=== PATIENT | female | born 1985 | race Caucasian/White ===

== ENCOUNTER 2016-09-02 05:14 | Inpatient (IN) | payer MEDICAID ==
[~2016-09-02] VITALS: Ht 165.1 cm; Wt 82.5 kg
[2016-09-02] MEDS ORDERED: CARBOPROST 250 MCG INJ IM PRN (05:30)
[2016-09-02] MEDS ORDERED: MISOPROSTOL 200 MCG TAB PR PRN ×2 (05:30→08:30)
[2016-09-02] MEDS ORDERED: METHYLERGONOVINE 0.2 MG INJ IM PRN (05:30)
[2016-09-02] MEDS ORDERED: OXYTOCIN 30 UNITS/LR 500 ML IV PRN (05:30)
[2016-09-02] MEDS: LACTATED RINGER'S 1,000 ML IV SCH ×5 (05:49→22:05)
[2016-09-02 05:51] VITALS: BP 129/84; PULSE 93; RESP 18
[2016-09-02 05:58] VITALS: Ht 165.1 cm; Wt 82.5 kg
[2016-09-02] MEDS ORDERED: OXYTOCIN 30 UNITS/LR 500 ML IV SCH (06:00)
[2016-09-02 06:31] LABS: ADD SCAN DIFF NO
[2016-09-02 06:50] LABS: BASOPHILS % 0.1 % (0.0-2.0); EOSINOPHILS # 0.1 10^3/ul (0.0-0.5); HEMOGLOBIN 10.7 g/dl (12.0-16.0); LYMPHOCYTES # 1.3 10^3/ul (0.8-2.9); LYMPHOCYTES % 18.4 % (15.0-51.0); MEAN CORPUSCULAR HEMOGLOBIN 25.2 pg (29.0-33.0); MEAN CORPUSCULAR HGB CONC 31.5 g/dl (32.0-37.0); MEAN CORPUSCULAR VOLUME 80.2 fl (82.0-101.0); MEAN PLATELET VOLUME 10.5 fl (7.4-10.4); MONOCYTE # 0.6 10^3/ul (0.3-0.9); MONOCYTES % 8.1 % (0.0-11.0); NEUTROPHIL # 4.9 10^3/ul (1.6-7.5); NEUTROPHILS % 71.8 % (39.0-77.0); PLATELET COUNT 229 10^3/UL (140-415); RED BLOOD COUNT 4.24 10^6/ul (4.20-5.40); RED CELL DISTRIBUTION WIDTH 15.5 % (11.5-14.5); WHITE BLOOD COUNT 6.8 10^3/ul (4.8-10.8)
[2016-09-02 07:05] LABS: INR 0.98
[2016-09-02] MEDS ORDERED: LACTATED RINGER'S 1,000 ML IV ONE (07:05)
[2016-09-02 07:06] LABS: PARTIAL THROMBOPLASTIN TIME 29.7 Sec (25.0-35.0)
[2016-09-02] MEDS ORDERED: CITRIC ACID/NA CITRATE 30 ML CUP PO SCH (07:28)
[2016-09-02] MEDS ORDERED: ONDANSETRON 4 MG INJ IV ONE (07:30)
[2016-09-02] MEDS ORDERED: CITRIC ACID/SODIUM CITRATE 15 ML CUP PO ONE (07:30)
[2016-09-02] MEDS ORDERED: morphine SULFATE/PF (10 MG/10 ML) INJ ONE (08:05)
[2016-09-02] MEDS ORDERED: FENTAnyl 50 MCG/ML VIAL ONE (08:05)
--- NOTE | 2016-09-02 08:10 | HP ---
Date/Time of Note Date/Time of Note DATE: 09/02/16 TIME: 08:07 OB - History Hx of Present Free Text/Dictation HISTORY OF PRESENT ILLNESS: 31 YO with history of previous delivery x 3, who desires to have repeat delivery and Permanent sterilization. I discussed with the patient the risks, benefits, indications, and alternatives of procedure including but not limited to risks of infection, bleeding, damage to other organs, bowel, bladder, hernia formation, scar formation, possibility of blood transfusion, possible need for emergency hysterectomy, as well as the fact that tubal ligation may fail and there is 1 to 2% risk of failure over lifetime of tubal ligations and the fact that tubal ligation is permanent and irreversible. She was allowed to ask questions. All her questions were answered. Informed consent has been obtained. Care: Good Care Ultrasounds: Normal mid trimester US Obstetrical Complications: Other (Anemia) Medical Complications: Other (Anemia) Past Family/Social History * Past Medical, Surgical, Family and Obstetric Histories reviewed from chart. OB Admission Exam Vital Signs Vital Signs Vital Signs Date Time Temp Pulse Resp B/P Pulse Ox O2 Delivery O2 Flow Rate FiO2 09/02/16 05:51 98.5 93 18 129/84 Room Air Physical Exam HEENT: WNL Heart: Rhythm Normal Lungs: Clear, Equal Abdomen: WNL Extremities: Normal Reflexes: Normal Last 72 hours Lab Results CBC & BMP 09/02/16 05:30 OB Assessment/Plan Other Assessment: history of previous delivery x 3, who desires to have repeat delivery and Permanent sterilization. Other plan: repeat deliver and BTL MONY GONSALEZ MD Sep 02, 2016 08:09
[2016-09-02] MEDS ORDERED: METOCLOPRAMIDE 10 MG INJ ONE (08:27)
[2016-09-02] MEDS ORDERED: OXYCODONE/ACETAMINOPHEN (5/325) TAB PO PRN (08:30)
[2016-09-02] MEDS ORDERED: LANOLIN 7 GM TUBE TOP PRN (08:30)
[2016-09-02] MEDS ORDERED: NA PHOSPHATE/BIPHOS 133 ML ENEMA PR PRN (08:30)
[2016-09-02] MEDS: CEFAZOLIN 2 GM/50 ML (PMX) 50 ML IV SCH (08:58)
[2016-09-02] MEDS ORDERED: NALOXONE (0.4 MG/ML) INJ IV PRN (09:00)
[2016-09-02] MEDS ORDERED: KETOROLAC 30 MG INJ IV PRN (09:00)
[2016-09-02] MEDS ORDERED: HYDROmorphONE 1 MG/ML SYG IV PRN ×2 (09:00)
[2016-09-02] MEDS ORDERED: ONDANSETRON 4 MG INJ IV PRN (09:00)
[2016-09-02] MEDS ORDERED: DIPHENHYDRAMINE 50 MG INJ IV PRN (09:00)
[2016-09-02] MEDS: SENNA/DOCUSATE NA (8.6MG/50MG) TAB PO SCH ×2 (09:00→21:00)
[2016-09-02] MEDS ORDERED: PROCHLORPERAZINE 10 MG INJ IV PRN (09:00)
[2016-09-02] MEDS ORDERED: OXYTOCIN 30 UNITS/LR 500 ML IV ONE (09:17)
--- NOTE | 2016-09-02 09:21 | OPR ---
Operative Report Planned Procedure Free Text/Dictation DATE OF OPERATION: PREOPERATIVE DIAGNOSES: 1. Term , history of previous delivery: 2. Desires repeat delivery. 3. Desires permanent sterilization POSTOPERATIVE DIAGNOSES: 1. Same OPERATION PERFORMED: Repeat delivery Bilateral distal salpingectomy Lysis of adhesion SURGEON: Kali London MD SENIOR J[employer] J2EE DEVELOPER: Dr. Singh ESTIMATED BLOOD LOSS: 700 mL. COMPLICATIONS: None. The risks, benefits, indications, alternatives of procedure including, but not limited to risk of infection, bleeding, damage to other organs, bowel, bladder, hernia formation, scar formation, possibility of blood transfusions, the risks of tubal ligation such as failure and future pregnancies were discussed with the patient. The fact that BTL is permanent and irreversible also discussed with patient. She was allowed to ask questions. All her questions were answered. Informed consent was obtained. DESCRIPTION OF PROCEDURE: She was taken to the operating room. Spinal anesthesia was induced. She was prepped and draped in the usual sterile fashion. Surgical time out one. Anesthesia was tested to be adequate. With permission from anesthesiologist, a knife was used to make a Pfannenstiel skin incision. The incision was taken down in layers. The fascia was cut, undermined and from the underlying muscle using sharp and blunt dissection. All the bleeders were cauterized. Peritoneum was entered bluntly. A low transverse incision was developed over the uterus. Amniotic fluid was clear and adequate. A viable in vertex presentation was delivered without any difficulty. The cord was clamped and cut, handed to awaiting team. Placenta was then delivered. Uterus was exteriorized, wrapped around a moist lap. Inside uterus was cleaned using a dry lap. All residual membranes were removed. The uterine incision was then closed using #1 Monocryl in 2 layers. adhesions fom omestum to tubes was taken down via sharp and blunt dissection. 5 cm distal end of the right tube was ligated 3 times using 0 plain tie and the ligated portion was cut , sent to pathology. Same procedure was done on the contralateral side. The uterus was inserted back inside the abdominal cavity. Irrigation was done carefully. Careful evaluation of the uterine incision revealed no further bleeding. The tubal ligation sites were evaluated carefully. There was no bleeding. The peritoneum and rectus muscles and fascia were evaluated. All bleeders cauterized. Peritoneum was closed using 2-0 Monocryl. At this time, the count was correct. Rectus fascia was reapproximated using 2-0 Monocryl. Rectus fascia was closed using #1 Vicryl. Subcutaneous tissue was cleaned and irrigated. All bleeders cauterized and the skin closed using 4-0 Monocryl. All counts correct. Procedure date Sep 02, 2016 Post-Procedure Specimen removed: Yes Specimen description tubal segments Complications: None Pt Condition post procedure: stable Disposition: PACU Physician Certification I, the undersigned physician, hereby certify that I have discussed the procedure described in this consent form with this patient (or the patient's legal labor union business representative), including: * The risk and benefits of the procedure; * Any adverse reactions that may reasonably be expected to occur; * Any alternative efficacious methods of treatment which may be medically viable ; * The potential problems that may occur during recuperation; * Potential for blood transfusion and associated risks/benefits; and * Any research or economic interest I may have regarding this treatment. I further certify that the patient/legally responsible person was encouraged to ask question and that all questions were answered. KALI LONDON MD Sep 02, 2016 09:20
[2016-09-02] MEDS: IBUPROFEN 600 MG TAB PO SCH ×2 (12:00→18:00)
[2016-09-02 12:45] VITALS: BP 114/51; RESP 18
[2016-09-02 13:15] VITALS: BP 117/66; PULSE 61; RESP 18
[2016-09-02 20:00] VITALS: BP 109/59; PULSE 68; RESP 20
[2016-09-03] MEDS: LACTATED RINGER'S 1,000 ML IV SCH ×4 (00:14→16:14)
[2016-09-03] MEDS: IBUPROFEN 600 MG TAB PO SCH ×4 (00:24→17:38)
[2016-09-03 04:01] VITALS: BP 102/60; PULSE 72; RESP 20
[2016-09-03] MEDS: CEFAZOLIN 2 GM/50 ML (PMX) 50 ML IV SCH (04:25)
--- NOTE | 2016-09-03 06:30 | QN ---
Documentation Comment post op day 1 s/p c/s and BTL S. no complaint O. AF VSS NAD Abd: soft, appropriate tenderness and distended incision: intact and no sign of infection extremity: equal +1 edema A. doing well P. current care MONY GONSALEZ MD Sep 03, 2016 06:30
[2016-09-03 08:00] VITALS: BP 94/60; PULSE 90; RESP 18
[2016-09-03 08:50] LABS: ADD SCAN DIFF NO
[2016-09-03 09:04] LABS: BASOPHILS % 0.4 % (0.0-2.0); EOSINOPHILS # 0.1 10^3/ul (0.0-0.5); EOSINOPHILS % 0.7 % (0.0-7.0); HEMATOCRIT 32.9 % (37.0-47.0); HEMOGLOBIN 10.2 g/dl (12.0-16.0); LYMPHOCYTES # 0.9 10^3/ul (0.8-2.9); LYMPHOCYTES % 12.8 % (15.0-51.0); MEAN CORPUSCULAR HEMOGLOBIN 24.9 pg (29.0-33.0); MEAN CORPUSCULAR VOLUME 80.4 fl (82.0-101.0); MEAN PLATELET VOLUME 10.2 fl (7.4-10.4); MONOCYTE # 0.5 10^3/ul (0.3-0.9); MONOCYTES % 7.2 % (0.0-11.0); NEUTROPHIL # 5.6 10^3/ul (1.6-7.5); NEUTROPHILS % 78.5 % (39.0-77.0); PLATELET COUNT 218 10^3/UL (140-415); RED BLOOD COUNT 4.09 10^6/ul (4.20-5.40); RED CELL DISTRIBUTION WIDTH 15.7 % (11.5-14.5); WHITE BLOOD COUNT 7.2 10^3/ul (4.8-10.8)
[2016-09-03] MEDS: SENNA/DOCUSATE NA (8.6MG/50MG) TAB PO SCH ×2 (09:18→20:46)
[2016-09-03 17:15] VITALS: BP 109/64; PULSE 71; RESP 18
[2016-09-03 20:00] VITALS: BP 102/64; PULSE 70; RESP 20
[2016-09-03] MEDS: OXYCODONE/ACETAMINOPHEN (5/325) TAB PO PRN (20:47)
[2016-09-04] MEDS: IBUPROFEN 600 MG TAB PO SCH ×5 (00:10→23:54)
[2016-09-04 07:39] VITALS: BP 101/51; PULSE 59; RESP 20
[2016-09-04] MEDS: SENNA/DOCUSATE NA (8.6MG/50MG) TAB PO SCH ×2 (09:28→21:45)
[2016-09-04] MEDS: OXYCODONE/ACETAMINOPHEN (5/325) TAB PO PRN ×2 (09:28→14:47)
[2016-09-04 12:04] VITALS: BP 99/54; PULSE 69; RESP 20
--- NOTE | 2016-09-04 12:59 | PN ---
Date/Time of Note Date/Time of Note DATE: 09/04/16 TIME: 12:54 OB Subjective Subjective Subjective September 04, 2016 Post 2 hospital visit Post C Section day 2 Patient is doing well, Ambulatory She is afebrile Abdomen is soft , Fundus is firm Incision is clean Moderate amount of lochia Breasts are soft, Nipples are intact No calf tenderness. No ankle edema Breast feeding the new born. New born is doing well Current Medications Medications (Trade) Dose Ordered Sig/Caroline Route PRN Reason Start Time Stop Time Status Last Admin Dose Admin Lactated Ringer's 1,000 ml @ 125 mls/hr Q8H IV 09/02/16 05:30 09/03/16 09:20 DC 09/03/16 05:37 Cefazolin Sodium/ Dextrose 50 ml @ 100 mls/hr ONCE IV 09/02/16 05:30 09/03/16 04:25 Oxytocin/Lactated Ringer's 500 ml @ 0 mls/hr ONCE PRN IV For Hemorrhage Management 09/02/16 05:30 Methylergonovine Maleate (Methergine) 0.2 mg ONCE PRN IM VAGINAL BLEEDING 09/02/16 05:30 Carboprost Tromethamine (Hemabate) 250 mcg ONCE PRN IM VAGINAL BLEEDING 09/02/16 05:30 Misoprostol 1000 mcg 1,000 mcg ONCE PRN GA VAGINAL BLEEDING 09/02/16 05:30 Oxytocin/Lactated Ringer's 500 ml @ 125 mls/hr ONCE IV 09/02/16 06:00 09/02/16 10:03 Lactated Ringer's (Lr) 1,000 ml @ 1,000 mls/hr Q1H ONCE IV 09/02/16 07:05 09/02/16 08:04 DC 09/02/16 07:27 Ondansetron HCl (Zofran Inj) 4 mg pre-procedure ONCE IV 09/02/16 07:30 09/02/16 07:31 DC 09/02/16 07:27 Citric Acid/ Sodium Citrate (Bicitra) 30 ml PRE-PROCEDURE ONCE PO 09/02/16 07:30 09/02/16 07:30 DC Citric Acid/ Sodium Citrate (Bicitra) 30 ml ONCE PO 09/02/16 07:28 09/02/16 10:00 DC 09/02/16 07:31 Fentanyl (Sublimaze) 100 mcg STK-MED ONCE .ROUTE 09/02/16 08:05 09/02/16 08:06 DC Morphine Sulfate 10 mg 10 mg STK-MED ONCE .ROUTE 09/02/16 08:05 09/02/16 08:06 DC Lactated Ringer's (Lr) 1,000 ml @ 125 mls/hr Q8H IV 09/02/16 08:14 09/03/16 17:40 DC 09/02/16 14:05 Oxycodone/ Acetaminophen (Percocet (5/ 325)) 1 tab Q4H PRN PO PAIN LEVEL 4-6 09/02/16 08:30 Oxycodone/ Acetaminophen (Percocet (5/ 325)) 2 tab Q4H PRN PO PAIN LEVEL 7-10 09/02/16 08:30 09/04/16 09:28 Ibuprofen (Motrin) 600 mg Q6 PO 09/02/16 12:00 09/04/16 12:28 Simethicone (Mylicon) 160 mg Q8H PRN PO DISTENSION/GAS/BLOATING 09/02/16 08:30 09/04/16 09:28 Senna/Docusate Sodium (Senokot-S) 1 tab BID PO 09/02/16 09:00 09/04/16 09:28 Sodium Biphosphate/ Sodium Phosphate (Fleet Enema) 133 ml DAILY PRN GA CONSTIPATION 09/02/16 08:30 Lanolin ([id number]) 1 applic BEDSIDE MEDICATION PRN TOP BEDSIDE FOR YEIMI TO NIPPLES 09/02/16 08:30 09/04/16 12:28 Diphtheria/ Tetanus/Acell Pertussis (Adacel) 0.5 ml ONCE ONCE IM* 09/05/16 09:00 09/05/16 09:01 Measles/Mumps/ Rubella Vaccine Live (Mmr Ii Vaccine) 0.5 ml ONCE ONCE SC* 09/05/16 09:00 09/05/16 09:01 Misoprostol (Cytotec) 1,000 mcg ONCE PRN GA VAGINAL BLEEDING 09/02/16 08:30 Metoclopramide HCl (Reglan) 10 mg STK-MED ONCE .ROUTE 09/02/16 08:27 09/02/16 08:28 DC Naloxone HCl (Narcan) 0.1 mg Q2M PRN IV FOR RESP RATE 8 OR LESS 09/02/16 09:00 09/03/16 08:59 DC Ketorolac Tromethamine (Toradol) 30 mg Q6H PRN IV PAIN 09/02/16 09:00 09/03/16 08:59 DC 09/02/16 11:36 Hydromorphone HCl (Dilaudid) 0.2 mg Q3H PRN IV PAIN LEVEL 1-5 09/02/16 09:00 09/03/16 08:59 DC Hydromorphone HCl (Dilaudid) 0.4 mg Q3H PRN IV PAIN LEVEL 6-10 09/02/16 09:00 09/03/16 08:59 DC 09/02/16 12:04 Diphenhydramine HCl (Benadryl) 25 mg Q6H PRN IV ITCHING 09/02/16 09:00 09/03/16 08:59 DC 09/02/16 10:48 Ondansetron HCl (Zofran Inj) 4 mg Q6H PRN IV NAUSEA AND/OR VOMITING 09/02/16 09:00 09/03/16 08:59 DC Prochlorperazine (Compazine Inj) 10 mg ONCE PRN IV NAUSEA AND/OR VOMITING 09/02/16 09:00 09/03/16 08:59 DC Miscellaneous Information Duramorph: 0.2 mg Spi... GIVEN XX 09/02/16 09:00 Oxytocin/Lactated Ringer's 500 ml @ STK-MED ONCE IV 09/02/16 09:17 09/02/16 09:18 DC Slight nipple irritation. The use of Lanoline advised. NUNO GARDNER MD Sep 04, 2016 12:58
[2016-09-04 16:21] VITALS: BP 114/66; PULSE 86; RESP 20
[2016-09-04 20:00] VITALS: BP 110/61; PULSE 70; RESP 20
[2016-09-05 04:13] VITALS: BP 108/62; PULSE 75; RESP 20
[2016-09-05] MEDS: IBUPROFEN 600 MG TAB PO SCH (05:17)
[2016-09-05 08:00] VITALS: BP 117/66; PULSE 53; RESP 20
[2016-09-05] MEDS ORDERED: DIPHTH/TET/ACEL PERTUSS (ADULT) 0.5 ML VIAL IM* ONE (09:00)
[2016-09-05] MEDS ORDERED: MEASLES,MUMPS,RUBELLA VACCINE INJ SC* ONE (09:00)
[2016-09-05] MEDS: OXYCODONE/ACETAMINOPHEN (5/325) TAB PO PRN (09:32)
[2016-09-05] MEDS: SENNA/DOCUSATE NA (8.6MG/50MG) TAB PO SCH (09:32)
--- NOTE | 2016-09-05 13:49 | DS ---
Date/Time of Note Date/Time of Note DATE: 09/05/16 TIME: 13:49 Obstetrical Discharge Record Final Diagnosis Final Diagnosis: Term delivered Section Section: Repeat Condition on Discharge Physical Assessment Voiding: Yes Bowel Movement: Yes Breast: Soft, non-tender Fundus: Firm Abdomen and Incision: CDI Calf Tenderness: No Patient Condition: Stable CHINYERE BARKSDALE MD Sep 05, 2016 13:49
== END 2016-09-05 15:00 | disposition home or self-care (01) | DRG 766 ==
LOC: L-D 05:14 → PP1 12:39
PROVIDERS: ADMIT Specialist; ATTEND Specialist
PROC: 0UB70ZZ Excision of Bilateral Fallopian Tubes, Open Approach (ICD-10-PCS; 2016-09-02)
PROC: 10D00Z1 Extraction of Products of Conception, Low, Open Approach (ICD-10-PCS; principal; 2016-09-02 07:30)
DX: O34.219 Maternal care for unspecified type scar from previous cesarean delivery (principal); E66.9 Obesity, unspecified; O99.02 Anemia complicating childbirth; Z30.2 Encounter for sterilization; O99.214 Obesity complicating childbirth; Z68.30 Body mass index [BMI] 30.0-30.9, adult; Z3A.39 39 weeks gestation of pregnancy; Z37.0 Single live birth
CPT/HCPCS: 85025; 85610; 85730; 86592; 86850; 86900; 86901; 87340; 88302; 90715; 94760; 99464; J0690; J1170; J1200; J1885; J2210; J2274; J2405; J2590; J2765; J3010; J7120